=== PATIENT | female | born 1955 | race Caucasian/White ===

== ENCOUNTER 2016-08-18 21:17 | Emergency (ER) | payer OTHER ==
[2016-08-18 21:36] VITALS: BP 151/69
--- NOTE | 2016-08-18 21:56 | UC ---
Neck Pain HPI - HPI Summary HPI Summary: left side neck pain x 1 day sudden onset, sharp / shooting, then had facial numbness of the left side, lasted for few min, no symptoms now - History of Current Complaint Chief Complaint: UCUpperExtremity Stated Complaint: LEFT NECK PAIN,FACIAL NUMBNESS Time Seen by Provider: 08/18/16 21:32 Hx Obtained From: Patient Hx Last Menstrual Period: 20 yrs Onset/Duration Of Injury/Symptoms: Days - 1 Timing: Intermittent Episodes - lasting for few few min Onset/Duration: Sudden Onset, Lasting Days - 1, Resolved Severity: Moderate Location: Discrete At: - left side of neck Character: Spasmotic Aggravating Factors: Nothing Alleviating Factors: Nothing Associated Signs & Symptoms: Positive: Paresthesia - left side of face. Negative: Swelling, Redness, Bruising, Fever, Nuchal Rigity, Weakness, Headache - Allergies/Home Medications Allergies/Adverse Reactions: Allergies Allergy/AdvReac Type Severity Reaction Status Date / Time No Known Allergies Allergy Verified 08/18/16 21:36 Home Medications: Home Medications Aspirin TAB* [Aspirin 325 MG TAB*] 325 mg PO DAILY 08/18/16 [History Confirmed 08/18/16] Cholecalciferol [Vitamin D 400] 800 unit PO DAILY 08/18/16 [History Confirmed ] Multivitamins/Minerals TAB* [Thera M Plus TAB*] 1 tab PO DAILY 08/18/16 [ History Confirmed 08/18/16] [place]-3 Fatty Acids [Fish Oil] 1,000 mg PO DAILY 08/18/16 [History Confirmed ] PMH/Surg Hx/FS Hx/Imm Hx Endocrine History Of: Denies: Diabetes Cardiovascular History Of: Denies: Cardiac Disorders, Hypertension Respiratory History Of: Denies: Asthma Cancer History Of: Denies: Breast Cancer - Surgical History Surgical History: None - Family History Known Family History: Negative: Diabetes - Social History Alcohol Use: Occasionally Substance Use Type: None Smoking Status (MU): Former Smoker Review Of Systems Constitutional: Positive: Negative Skin: Positive: Negative Eyes: Positive: Negative ENT: Positive: Negative Neurological: Positive: Negative All Other Systems Reviewed And Are Negative: Yes Physical Exam Triage Information Reviewed: Yes Appearance: Well-Appearing, No Pain Distress, Well-Nourished Vital Signs: Initial Vital Signs Temp 99.4 F 08/18/16 21:20 Pulse 92 08/18/16 21:20 Resp 24 08/18/16 21:20 BP 151/69 08/18/16 21:20 Pulse Ox 98 08/18/16 21:20 Vital Signs Reviewed: Yes Eyes: Positive: Conjunctiva Clear ENT: Positive: Normal ENT inspection, Hearing grossly normal, Pharynx normal Dental Exam: Normal Neck exam: Normal Neck: Positive: Supple, Nontender, No Lymphadenopathy Respiratory Exam: Normal Respiratory: Positive: Chest non-tender, Lungs clear, Normal breath sounds Cardiovascular: Positive: RRR, No Murmur, Pulses Normal Abdominal Exam: Normal Musculoskeletal Exam: Normal Musculoskeletal: Positive: Strength Intact, ROM Intact Neurological Exam: Normal Neurological: Positive: Alert, Muscle Tone Normal UC Physical Exam Vital Signs On Initial Exam: Initial Vitals Temp Pulse Resp BP Pulse Ox 99.4 F 92 24 151/69 98 08/18/16 21:20 08/18/16 21:20 08/18/16 21:20 08/18/16 21:20 08/18/16 21:20 - Neurological Exam Neurological: Normal, Sensory/Motor Intact, CN Intact II-III, Reflexes Intact, Normal Gait, Speech Normal Neck Pain Course/Dx - Differential Dx/Diagnosis Provider Diagnoses: neck strain. parasthesia left side of face Discharge - Discharge Plan Condition: Stable Disposition: HOME Patient Education Materials: Acute Neck Pain (ED) Referrals: Meche Venegas MD [Primary Care Provider] - 7 Days Additional Instructions: facial numbness, most likely due to a peripheral pinched nerve normal neuro exam, cont. with rest, heating pads , stretching, may take ibuprofen as needed for pain
== END 2016-08-18 22:04 | disposition home or self-care (01) ==
LOC: UCCORT 21:17
DX: S16.1XXA Strain of muscle, fascia and tendon at neck level, initial encounter (principal); X58.XXXA Exposure to other specified factors, initial encounter; Y93.9 Activity, unspecified; Y92.9 Unspecified place or not applicable; R20.9 Unspecified disturbances of skin sensation; Z87.891 Personal history of nicotine dependence
CPT/HCPCS: 99211; G0463

== ENCOUNTER 2017-08-27 17:38 | Emergency (ER) | payer OTHER ==
[2017-08-27 18:06] VITALS: BP 152/80
--- NOTE | 2017-08-27 18:08 | UC ---
UC General HPI - HPI Summary HPI Summary: pain to the R lower back molar since yesterday. today her jaw started to swell as well. she had a problem with that tooth 2.5 months ago but it got better with antibiotics. - History of Current Complaint Hx Obtained From: Patient Hx Last Menstrual Period: 20 yrs Onset/Duration: Gradual Onset Timing: Constant Aggravating: any touch/chewing Alleviating: none with otc nsaid <Paola Flowers - Last Filed: 08/27/17 18:29> <Joe Padilla - Last Filed: 08/27/17 20:25> - History of Current Complaint Stated Complaint: ORAL COMPLAINT Time Seen by Provider: 08/27/17 18:02 - Allergy/Home Medications Allergies/Adverse Reactions: Allergies Allergy/AdvReac Type Severity Reaction Status Date / Time No Known Allergies Allergy Verified 08/27/17 18:02 Home Medications: Home Medications Naproxen TAB* [Naprosyn 375 mg TAB*] 375 mg PO Q6HR PRN 08/27/17 [History Confirmed 08/27/17] PMH/Surg Hx/FS Hx/Imm Hx Previously Healthy: Yes - Surgical History Surgical History: None - Family History Known Family History: Negative: Diabetes - Social History Occupation: Employed Full-time Lives: With Family Alcohol Use: Occasionally Substance Use Type: None Smoking Status (MU): Former Smoker - Immunization History Vaccination Up to Date: Yes <Paola Flowers - Last Filed: 08/27/17 18:29> Review of Systems Constitutional: Negative Skin: Negative Eyes: Negative ENT: Dental Pain - with jaw swelling Respiratory: Negative Cardiovascular: Negative Gastrointestinal: Negative Genitourinary: Negative Motor: Negative Neurovascular: Negative Musculoskeletal: Negative Neurological: Negative Psychological: Negative Is Patient Immunocompromised?: No All Other Systems Reviewed And Are Negative: Yes <Paola Flowers - Last Filed: 08/27/17 18:29> Physical Exam Triage Information Reviewed: Yes Appearance: Well-Appearing Vital Signs Reviewed: Yes Eyes: Positive: Conjunctiva Clear ENT: Positive: Pharynx normal, TMs normal. Negative: Nasal congestion, Nasal drainage Dental: Positive: Percussion Tenderness @ - R lower, back molar, Abscess @ - R lower back gum but not fluctuant. Negative: Gross Decay/Caries @, Dental Fracture @ Neck: Positive: Supple, Nontender, No Lymphadenopathy Respiratory: Positive: Lungs clear, Normal breath sounds Cardiovascular: Positive: RRR, No Murmur Abdomen Description: Positive: Nontender, No Organomegaly, Soft Bowel Sounds: Positive: Present Musculoskeletal: Positive: ROM Intact Neurological: Positive: Alert Psychological: Positive: Age Appropriate Behavior Skin Exam: Normal <Paola Flowers - Last Filed: 08/27/17 18:29> Vital Signs: Initial Vital Signs Temp 99.6 F 08/27/17 18:00 Pulse 73 08/27/17 18:00 Resp 16 08/27/17 18:00 BP 152/80 08/27/17 18:00 Pulse Ox 99 08/27/17 18:00 <Joe Padilla - Last Filed: 08/27/17 20:25> Course/Dx - Differential Dx - Multi-Symptom Provider Diagnoses: R lower gum infection <Paola Flowers - Last Filed: 08/27/17 18:29> Discharge - Sign-Out/Discharge Documenting (check all that apply): Discharge/Admit/Transfer - Billing Disposition and Condition Condition: STABLE Disposition: HOME <Paola Flowers - Last Filed: 08/27/17 18:29> - Billing Disposition and Condition Condition: STABLE Disposition: HOME <Joe Padilla - Last Filed: 08/27/17 20:25> - Discharge Plan Condition: Stable Disposition: HOME Prescriptions: Amoxicillin PO (*) [Amoxicillin 875 MG (*)] 875 mg PO BID #20 tab Patient Education Materials: Dental Abscess (ED), Toothache (ED) Referrals: Meche Venegas MD [Primary Care Provider] - If Needed Additional Instructions: FOLLOW UP DR LOPEZ(YOUR DENTIST) IN AM Per institutional requirements, I have reviewed the chart, however, I was not consulted specifically or made aware of this patient by the above midlevel provider. I did not personally evaluate, interact with , or disposition this patient. Addendum entered and electronically signed by Paola Flowers PA 08/27/17 18:30 : Addendum Addendum: NO HX HTN, BP ATTRIBUTED TO PAIN
[2017-08-27] MEDS ORDERED: HYDROcodone/ACETAMIN 5-325 MG* 1 TAB PO ONE (18:14)
[2017-08-27] MEDS ORDERED: Amoxicillin PO (*) 500 MG CAP PO ONE (18:14)
== END 2017-08-27 18:29 | disposition home or self-care (01) ==
LOC: UCCORT 17:38
DX: K04.7 Periapical abscess without sinus (principal); Z87.891 Personal history of nicotine dependence
CPT/HCPCS: 99213; A9270-GY; G0463